=== PATIENT | male | born 1945 | race Caucasian/White ===

== ENCOUNTER 2020-04-15 09:09 | Inpatient (IN) ==
[2020-04-15] MEDS ORDERED: HYDROmorphone 2 MG/1 ML VIAL IV STA (09:36)
[2020-04-15] MEDS ORDERED: SODIUM CHLORIDE 0.9% 1,000 ML IV STA (09:36)
[2020-04-15] MEDS ORDERED: ONDANSETRON 4 MG/2 ML VIAL IV STA ×2 (09:36→12:19)
[2020-04-15 10:02] LABS: Basophils % 0.1 % (0.0-0.8); Eosinophils % 0.1 % (0.00-10.9); Hematocrit 36.8 VOL% (42.0-52.0); Hemoglobin 11.4 GM/DL (14.0-18.0); Immature Granulocytes % 0.7 %; Immature Granulocytes Absolute 0.06 #; Lymphocytes # 0.9 10*3/uL (1.4-4.0); Lymphocytes % 10.5 % (21.2-54.2); Mean Corpuscular Volume 84.8 FL (87-102); Monocytes % 8.7 % (1.7-12.7); Neutrophils % 79.9 % (38.7-73.9); Platelet Count 205 T/CUMM (130-400); Red Blood Count 4.34 MC/CUMM (3.8-5.5); Red Cell Distribution Width 15.5 % (9.3-17.3); White Blood Count 8.6 T/CUMM (4-12)
[2020-04-15 10:34] LABS: Bilirubin,Urine Negative (Negative); Blood, Urine Negative (Negative); Glucose,Urine (UA) Negative (Negative); Ketones,Urine Negative (Negative); Nitrite,Urine Negative (Negative); Protein,Urine Negative; RBC,Urine 2 /HPF (0-4); Urine Appearance CLEAR (Clear); Urine Color Yellow (Yellow); Urine Specific Gravity 1.013 (1.001-1.035); Urine Urobilinogen < 2.0 EU/DL (0.2-1.0); WBC,Urine 6 /HPF (0-6)
[2020-04-15 10:40] LABS: Albumin 3.7 G/DL (3.4-5.0); Bilirubin,Total 0.6 MG/DL (0.2-1.0); Calcium 9.7 MG/DL (8.5-10.1)
[2020-04-15] MEDS ORDERED: ACETAMINOPHEN 325 MG TABLET PO PRN (12:53)
[2020-04-15] MEDS: SODIUM CHLORIDE 0.9% 1,000 ML IV SCH ×2 (13:00→23:23)
[2020-04-15] MEDS: ONDANSETRON 4 MG/2 ML VIAL IV PRN (15:56)
[2020-04-15] MEDS: HYDROmorphone 2 MG/1 ML VIAL IV PRN (15:57)
[2020-04-15] MEDS ORDERED: PROMETHAZINE INJ 12.5 MG in SODIUM CHLORIDE 0.9% 50 ML IV PRN (16:03)
[2020-04-15] MEDS ORDERED: NITROGLYCERIN SL 0.4 MG TABLET SL PRN (16:17)
[2020-04-15] MEDS ORDERED: TERAZOSIN 10 MG CAPSULE PO SCH (21:00)
[2020-04-15] MEDS: carvediloL 25 MG TABLET PO SCH (21:21)
[2020-04-15] MEDS: POTASSIUM CHLORIDE 20 MEQ TABLET PO SCH (21:21)
[2020-04-15] MEDS: DOCUSATE SODIUM 100 MG CAPSULE PO SCH (21:21)
[2020-04-15] MEDS: ATORVASTATIN 10 MG TABLET PO SCH (21:21)
[2020-04-15] MEDS: SERTRALINE 25 MG TABLET PO SCH (21:21)
[2020-04-16] MEDS: ONDANSETRON 4 MG/2 ML VIAL IV PRN ×3 (00:11→17:46)
[2020-04-16 05:39] LABS: Basophils % 0.1 % (0.0-0.8); Hematocrit 35.1 VOL% (42.0-52.0); Hemoglobin 10.7 GM/DL (14.0-18.0); Immature Granulocytes % 0.6 %; Immature Granulocytes Absolute 0.09 #; Lymphocytes # 0.7 10*3/uL (1.4-4.0); Lymphocytes % 4.4 % (21.2-54.2); Mean Corpuscular HGB Conc 30.5 GM/DL (32-36); Mean Corpuscular Volume 87.1 FL (87-102); Monocytes % 12.2 % (1.7-12.7); Neutrophils % 82.7 % (38.7-73.9); Platelet Count 167 T/CUMM (130-400); Red Blood Count 4.03 MC/CUMM (3.8-5.5); Red Cell Distribution Width 15.9 % (9.3-17.3); White Blood Count 14.8 T/CUMM (4-12)
[2020-04-16 05:52] LABS: Calcium 8.9 MG/DL (8.5-10.1); Osmolality,Calculated 285.5 MOS/KG (273-304)
[2020-04-16] MEDS: HYDROmorphone 2 MG/1 ML VIAL IV PRN ×2 (06:11→17:45)
[2020-04-16 06:12] LABS: Band Neutrophils 4 % (0-10); Hypochromasia 1+; Lymphocytes 4 % (20-55); Microcytosis 1+; Platelet Estimate Adequate; Segmented Neutrophils 79 % (50-85); Total Cells Counted 100
[2020-04-16] MEDS ORDERED: SPIRONOLACTONE 25 MG TABLET PO SCH (09:00)
[2020-04-16] MEDS ORDERED: FUROSEMIDE 80 MG TABLET PO SCH (09:00)
[2020-04-16] MEDS ORDERED: oxyCODONE/ACETAMINOPHEN 5-325 MG TABLET PO PRN (09:22)
[2020-04-16] MEDS: carvediloL 25 MG TABLET PO SCH ×2 (09:56→21:25)
[2020-04-16] MEDS: DOCUSATE SODIUM 100 MG CAPSULE PO SCH ×2 (09:56→21:25)
[2020-04-16] MEDS: POTASSIUM CHLORIDE 20 MEQ TABLET PO SCH ×2 (09:57→21:25)
[2020-04-16] MEDS: PANTOPRAZOLE 40 MG TABLET PO SCH (09:57)
[2020-04-16] MEDS: MAGNESIUM CHLORIDE 64 MG TABLET PO SCH (09:57)
[2020-04-16] MEDS: TAMSULOSIN 0.4 MG CAPSULE PO SCH (10:03)
[2020-04-16] MEDS: oxyCODONE/ACETAMINOPHEN 5-325 MG TABLET PO PRN (10:04)
[2020-04-16] MEDS ORDERED: METOCLOPRAMIDE 10 MG/2 ML VIAL IV ONE (14:55)
[2020-04-16] MEDS: SODIUM CHLORIDE 0.9% 1,000 ML IV SCH (15:46)
[2020-04-16] MEDS: cefTRIAXone 1,000 MG in SYRINGE 1 EACH IV SCH (15:46)
[2020-04-16] MEDS: SERTRALINE 25 MG TABLET PO SCH (21:25)
[2020-04-16] MEDS: ATORVASTATIN 10 MG TABLET PO SCH (21:25)
[2020-04-17] MEDS: SODIUM CHLORIDE 0.9% 1,000 ML IV SCH ×3 (02:03→19:19)
[2020-04-17] MEDS: oxyCODONE/ACETAMINOPHEN 5-325 MG TABLET PO PRN ×2 (03:47→20:52)
[2020-04-17 06:51] LABS: Basophils % 0.2 % (0.0-0.8); Hematocrit 31.4 VOL% (42.0-52.0); Hemoglobin 9.6 GM/DL (14.0-18.0); Immature Granulocytes % 1.4 %; Immature Granulocytes Absolute 0.18 #; Lymphocytes # 0.7 10*3/uL (1.4-4.0); Lymphocytes % 5.1 % (21.2-54.2); Mean Corpuscular HGB Conc 30.6 GM/DL (32-36); Mean Platelet Volume 10.4 FL (9.6-12.0); Monocytes % 14.8 % (1.7-12.7); Neutrophils % 78.5 % (38.7-73.9); Platelet Count 150 T/CUMM (130-400); Red Blood Count 3.61 MC/CUMM (3.8-5.5); White Blood Count 12.9 T/CUMM (4-12)
[2020-04-17 07:09] LABS: Calcium 8.3 MG/DL (8.5-10.1)
[2020-04-17] MEDS ORDERED: MAGNESIUM SULF RIDER 4 GM in PREMIX 1 EACH IV PRN (07:32)
[2020-04-17] MEDS ORDERED: MAGNESIUM SULF RIDER 2 GM in PREMIX 1 EACH IV PRN (07:32)
[2020-04-17] MEDS ORDERED: ALUMINUM/MAGNES/SIMETH MAX STR 30 ML UDCUP PO PRN (08:34)
[2020-04-17] MEDS ORDERED: LACTULOSE 20 GM/30 ML UDCUP PO ONE (08:34)
[2020-04-17] MEDS ORDERED: BISACODYL 10 MG SUPP RECTAL ONE (09:00)
[2020-04-17] MEDS: POTASSIUM CHLORIDE 20 MEQ TABLET PO SCH ×2 (09:24→20:44)
[2020-04-17] MEDS: TAMSULOSIN 0.4 MG CAPSULE PO SCH (09:24)
[2020-04-17] MEDS: DOCUSATE SODIUM 100 MG CAPSULE PO SCH ×2 (09:25→20:44)
[2020-04-17] MEDS: carvediloL 25 MG TABLET PO SCH ×2 (09:25→20:44)
[2020-04-17] MEDS: PANTOPRAZOLE 40 MG TABLET PO SCH (09:25)
[2020-04-17] MEDS: MAGNESIUM CHLORIDE 64 MG TABLET PO SCH (09:25)
[2020-04-17] MEDS: cefTRIAXone 1,000 MG in SYRINGE 1 EACH IV SCH (15:05)
[2020-04-17] MEDS: ONDANSETRON 4 MG/2 ML VIAL IV PRN (15:36)
[2020-04-17] MEDS: SERTRALINE 25 MG TABLET PO SCH (20:44)
[2020-04-17] MEDS: ATORVASTATIN 10 MG TABLET PO SCH (20:45)
[2020-04-18] MEDS: SODIUM CHLORIDE 0.9% 1,000 ML IV SCH (03:38)
[2020-04-18] MEDS: POTASSIUM CHLORIDE 20 MEQ TABLET PO SCH ×2 (09:18→21:20)
[2020-04-18] MEDS: MAGNESIUM CHLORIDE 64 MG TABLET PO SCH (09:19)
[2020-04-18] MEDS: carvediloL 25 MG TABLET PO SCH ×2 (09:19→21:20)
[2020-04-18] MEDS: DOCUSATE SODIUM 100 MG CAPSULE PO SCH ×2 (09:19→21:20)
[2020-04-18] MEDS: TAMSULOSIN 0.4 MG CAPSULE PO SCH (09:19)
[2020-04-18] MEDS: PANTOPRAZOLE 40 MG TABLET PO SCH (09:28)
[2020-04-18] MEDS: METOCLOPRAMIDE 10 MG/2 ML VIAL IV SCH ×3 (09:28→23:59)
[2020-04-18] MEDS ORDERED: WARFARIN 5 MG TABLET PO ONE (11:27)
[2020-04-18] MEDS: oxyCODONE/ACETAMINOPHEN 5-325 MG TABLET PO PRN ×2 (13:59→23:32)
[2020-04-18] MEDS: cefTRIAXone 1,000 MG in SYRINGE 1 EACH IV SCH (15:39)
[2020-04-18] MEDS: SERTRALINE 25 MG TABLET PO SCH (21:20)
[2020-04-18] MEDS: ATORVASTATIN 10 MG TABLET PO SCH (21:22)
[2020-04-19 05:59] LABS: Basophils % 0.1 % (0.0-0.8); Eosinophils % 0.2 % (0.00-10.9); Hematocrit 29.3 VOL% (42.0-52.0); Hemoglobin 9.1 GM/DL (14.0-18.0); Immature Granulocytes % 0.8 %; Immature Granulocytes Absolute 0.08 #; Lymphocytes # 0.9 10*3/uL (1.4-4.0); Lymphocytes % 8.9 % (21.2-54.2); Mean Corpuscular HGB Conc 31.1 GM/DL (32-36); Mean Corpuscular Volume 86.2 FL (87-102); Mean Platelet Volume 10.8 FL (9.6-12.0); Monocytes % 17.7 % (1.7-12.7); Neutrophils % 72.3 % (38.7-73.9); Platelet Count 173 T/CUMM (130-400); Red Cell Distribution Width 15.9 % (9.3-17.3)
[2020-04-19 06:09] LABS: INR 1.3; PT Patient Result 13.3 SECS (9.8-11.9)
[2020-04-19 06:17] LABS: Calcium 8.8 MG/DL (8.5-10.1); Osmolality,Calculated 280.1 MOS/KG (273-304)
[2020-04-19 06:25] LABS: Hypochromasia 1+; Lymphocytes 5 % (20-55); Microcytosis 1+; Ovalocytes Slight; Platelet Estimate Adequate; Segmented Neutrophils 80 % (50-85); Total Cells Counted 100
[2020-04-19] MEDS: METOCLOPRAMIDE 10 MG/2 ML VIAL IV SCH ×2 (08:04→17:20)
[2020-04-19] MEDS: POTASSIUM CHLORIDE 20 MEQ TABLET PO SCH ×2 (08:05→20:37)
[2020-04-19] MEDS: TAMSULOSIN 0.4 MG CAPSULE PO SCH (08:05)
[2020-04-19] MEDS: DOCUSATE SODIUM 100 MG CAPSULE PO SCH ×2 (08:05→20:37)
[2020-04-19] MEDS: PANTOPRAZOLE 40 MG TABLET PO SCH (08:05)
[2020-04-19] MEDS: MAGNESIUM CHLORIDE 64 MG TABLET PO SCH (08:05)
[2020-04-19] MEDS: oxyCODONE/ACETAMINOPHEN 5-325 MG TABLET PO PRN ×3 (08:05→20:38)
[2020-04-19] MEDS: carvediloL 25 MG TABLET PO SCH ×2 (08:05→20:37)
[2020-04-19] MEDS: cefTRIAXone 1,000 MG in SYRINGE 1 EACH IV SCH (15:35)
[2020-04-19] MEDS: ATORVASTATIN 10 MG TABLET PO SCH (20:37)
[2020-04-19] MEDS: SERTRALINE 25 MG TABLET PO SCH (20:37)
[2020-04-20] MEDS: METOCLOPRAMIDE 10 MG/2 ML VIAL IV SCH ×3 (00:08→16:32)
[2020-04-20] MEDS: oxyCODONE/ACETAMINOPHEN 5-325 MG TABLET PO PRN ×4 (03:28→22:05)
[2020-04-20] MEDS: MAGNESIUM CHLORIDE 64 MG TABLET PO SCH (09:20)
[2020-04-20] MEDS: PANTOPRAZOLE 40 MG TABLET PO SCH (09:20)
[2020-04-20] MEDS: TAMSULOSIN 0.4 MG CAPSULE PO SCH (09:20)
[2020-04-20] MEDS: POTASSIUM CHLORIDE 20 MEQ TABLET PO SCH ×2 (09:20→20:48)
[2020-04-20] MEDS: DOCUSATE SODIUM 100 MG CAPSULE PO SCH ×2 (09:20→20:48)
[2020-04-20] MEDS: carvediloL 25 MG TABLET PO SCH ×2 (09:20→20:48)
[2020-04-20] MEDS: cefTRIAXone 1,000 MG in SYRINGE 1 EACH IV SCH (16:33)
[2020-04-20] MEDS: ATORVASTATIN 10 MG TABLET PO SCH (20:48)
[2020-04-20] MEDS: SERTRALINE 25 MG TABLET PO SCH (20:48)
[2020-04-20] MEDS: ONDANSETRON 4 MG/2 ML VIAL IV PRN (22:10)
[2020-04-21] MEDS: METOCLOPRAMIDE 10 MG/2 ML VIAL IV SCH ×4 (01:02→23:53)
[2020-04-21 06:35] LABS: Basophils % 0.1 % (0.0-0.8); Eosinophils # 0.1 10*3/uL (0.0-0.87); Eosinophils % 1.1 % (0.00-10.9); Hematocrit 33.4 VOL% (42.0-52.0); Hemoglobin 10.6 GM/DL (14.0-18.0); Immature Granulocytes % 0.9 %; Immature Granulocytes Absolute 0.07 #; Lymphocytes # 0.7 10*3/uL (1.4-4.0); Lymphocytes % 9.3 % (21.2-54.2); Mean Corpuscular HGB Conc 31.7 GM/DL (32-36); Mean Corpuscular Volume 85.9 FL (87-102); Monocytes % 18.8 % (1.7-12.7); Neutrophils % 69.8 % (38.7-73.9); Platelet Count 199 T/CUMM (130-400); Red Blood Count 3.89 MC/CUMM (3.8-5.5); Red Cell Distribution Width 15.9 % (9.3-17.3); White Blood Count 7.4 T/CUMM (4-12)
[2020-04-21 06:57] LABS: Calcium 9.2 MG/DL (8.5-10.1); Osmolality,Calculated 275.2 MOS/KG (273-304)
[2020-04-21 07:04] LABS: Band Neutrophils 5 % (0-10); Eosinophils 1 % (0-10); Lymphocytes 4 % (20-55); Segmented Neutrophils 77 % (50-85); Total Cells Counted 100
[2020-04-21 07:05] LABS: Hypochromasia 1+; Microcytosis 1+; Ovalocytes Slight
[2020-04-21 07:06] LABS: Platelet Estimate Adequate
[2020-04-21] MEDS: PANTOPRAZOLE 40 MG TABLET PO SCH (09:12)
[2020-04-21] MEDS: DOCUSATE SODIUM 100 MG CAPSULE PO SCH ×2 (09:12→20:32)
[2020-04-21] MEDS: MAGNESIUM CHLORIDE 64 MG TABLET PO SCH (09:12)
[2020-04-21] MEDS: POTASSIUM CHLORIDE 20 MEQ TABLET PO SCH ×2 (09:12→20:32)
[2020-04-21] MEDS: TAMSULOSIN 0.4 MG CAPSULE PO SCH (09:12)
[2020-04-21] MEDS: oxyCODONE/ACETAMINOPHEN 5-325 MG TABLET PO PRN ×2 (09:13→18:55)
[2020-04-21] MEDS: carvediloL 25 MG TABLET PO SCH ×2 (09:13→20:32)
[2020-04-21] MEDS: cefTRIAXone 1,000 MG in SYRINGE 1 EACH IV SCH (16:22)
[2020-04-21] MEDS: ONDANSETRON 4 MG/2 ML VIAL IV PRN (20:32)
[2020-04-21] MEDS: ATORVASTATIN 10 MG TABLET PO SCH (20:32)
[2020-04-21] MEDS: SERTRALINE 25 MG TABLET PO SCH (20:32)
[2020-04-22] MEDS: oxyCODONE/ACETAMINOPHEN 5-325 MG TABLET PO PRN ×2 (02:29→15:13)
[2020-04-22] MEDS: METOCLOPRAMIDE 10 MG/2 ML VIAL IV SCH ×2 (08:08→16:36)
[2020-04-22] MEDS: carvediloL 25 MG TABLET PO SCH ×2 (08:50→21:23)
[2020-04-22] MEDS: MAGNESIUM CHLORIDE 64 MG TABLET PO SCH (09:14)
[2020-04-22] MEDS: TAMSULOSIN 0.4 MG CAPSULE PO SCH (09:14)
[2020-04-22] MEDS: DOCUSATE SODIUM 100 MG CAPSULE PO SCH ×2 (09:14→21:23)
[2020-04-22] MEDS: POTASSIUM CHLORIDE 20 MEQ TABLET PO SCH ×2 (09:14→21:21)
[2020-04-22] MEDS: PANTOPRAZOLE 40 MG TABLET PO SCH (09:14)
[2020-04-22] MEDS ORDERED: propofoL 200 MG/20 ML VIAL IV ONE (11:05)
[2020-04-22] MEDS ORDERED: LIDOCAINE 2% 5 ML VIAL ONE (11:05)
[2020-04-22] MEDS ORDERED: SEVOFLURANE 1 UNIT/15 MINUTE INH ONE (11:06)
[2020-04-22] MEDS ORDERED: DEXAMETHASONE 4 MG/1 ML VIAL ONE (11:06)
[2020-04-22] MEDS ORDERED: ONDANSETRON 4 MG/2 ML VIAL ONE (11:06)
[2020-04-22] MEDS ORDERED: ETOMIDATE 40 MG/20 ML VIAL IV ONE (11:06)
[2020-04-22] MEDS ORDERED: fentaNYL 100 MCG/2 ML VIAL ONE (11:06)
[2020-04-22] MEDS ORDERED: PHENYLEPHRINE 1 MG/10 ML SYRINGE IV ONE (11:06)
[2020-04-22] MEDS ORDERED: LACTATED RINGERS 1,000 ML IV ONE (11:06)
[2020-04-22] MEDS: PHENAZOPYRIDINE 95 MG TABLET PO SCH ×2 (12:48→16:37)
[2020-04-22] MEDS: SPIRONOLACTONE 25 MG TABLET PO SCH (15:23)
[2020-04-22] MEDS: cefTRIAXone 1,000 MG in SYRINGE 1 EACH IV SCH (16:36)
[2020-04-22] MEDS ORDERED: cloNIDine 0.1 MG TABLET PO ONE (17:47)
[2020-04-22] MEDS ORDERED: BISACODYL 10 MG SUPP RECTAL PRN (20:25)
[2020-04-22] MEDS: SERTRALINE 25 MG TABLET PO SCH (21:21)
[2020-04-22] MEDS: ATORVASTATIN 10 MG TABLET PO SCH (21:23)
[2020-04-23] MEDS: hydrALAZINE 20 MG/1 ML VIAL IV PRN ×2 (00:35→20:42)
[2020-04-23] MEDS: METOCLOPRAMIDE 10 MG/2 ML VIAL IV SCH ×3 (00:35→16:31)
[2020-04-23 06:37] LABS: Basophils % 0.2 % (0.0-0.8); Eosinophils % 0.3 % (0.00-10.9); Hematocrit 34.1 VOL% (42.0-52.0); Hemoglobin 10.9 GM/DL (14.0-18.0); Immature Granulocytes % 1.9 %; Immature Granulocytes Absolute 0.18 #; Lymphocytes # 1.2 10*3/uL (1.4-4.0); Lymphocytes % 12.4 % (21.2-54.2); Mean Platelet Volume 10.4 FL (9.6-12.0); Monocytes % 14.2 % (1.7-12.7); Platelet Count 254 T/CUMM (130-400); Red Blood Count 4.11 MC/CUMM (3.8-5.5); Red Cell Distribution Width 15.7 % (9.3-17.3); White Blood Count 9.5 T/CUMM (4-12)
[2020-04-23 06:53] LABS: Calcium 9.5 MG/DL (8.5-10.1); Osmolality,Calculated 275.4 MOS/KG (273-304)
[2020-04-23 07:03] LABS: Hypochromasia 1+; Lymphocytes 14 % (20-55); Microcytosis 1+; Ovalocytes Slight; Platelet Estimate Adequate; Segmented Neutrophils 74 % (50-85); Total Cells Counted 100
[2020-04-23] MEDS ORDERED: oxyCODONE/ACETAMINOPHEN 5-325 MG TABLET PO PRN (08:41)
[2020-04-23] MEDS: PHENAZOPYRIDINE 95 MG TABLET PO SCH ×3 (09:19→17:52)
[2020-04-23] MEDS: PANTOPRAZOLE 40 MG TABLET PO SCH (09:20)
[2020-04-23] MEDS: TAMSULOSIN 0.4 MG CAPSULE PO SCH ×2 (09:20→20:40)
[2020-04-23] MEDS: DOCUSATE SODIUM 100 MG CAPSULE PO SCH ×2 (09:20→22:03)
[2020-04-23] MEDS: MAGNESIUM CHLORIDE 64 MG TABLET PO SCH (09:20)
[2020-04-23] MEDS: POTASSIUM CHLORIDE 20 MEQ TABLET PO SCH ×2 (09:20→20:41)
[2020-04-23] MEDS: SPIRONOLACTONE 25 MG TABLET PO SCH (09:20)
[2020-04-23] MEDS: carvediloL 25 MG TABLET PO SCH ×2 (09:20→20:42)
[2020-04-23] MEDS: APIXABAN 2.5 MG TABLET PO SCH ×2 (09:22→20:41)
[2020-04-23] MEDS ORDERED: CLOPIDOGREL 75 MG TABLET PO ONE (09:32)
[2020-04-23] MEDS ORDERED: MAGNESIUM HYDROXIDE SUSP 30 ML UDCUP PO PRN (09:32)
[2020-04-23] MEDS ORDERED: MAGNESIUM HYDROXIDE SUSP 30 ML UDCUP PO ONE (09:32)
[2020-04-23] MEDS: FUROSEMIDE 40 MG TABLET PO SCH (11:05)
[2020-04-23] MEDS: POLYETHYLENE GLYCOL POWDER 17 GM PACK PO SCH (11:05)
[2020-04-23] MEDS: cefTRIAXone 1,000 MG in SYRINGE 1 EACH IV SCH (16:32)
[2020-04-23] MEDS: ATORVASTATIN 10 MG TABLET PO SCH (20:41)
[2020-04-23] MEDS: SERTRALINE 25 MG TABLET PO SCH (20:42)
[2020-04-24] MEDS: METOCLOPRAMIDE 10 MG/2 ML VIAL IV SCH ×3 (00:59→16:24)
[2020-04-24] MEDS ORDERED: CLOPIDOGREL 75 MG TABLET PO SCH (09:00)
[2020-04-24] MEDS: carvediloL 25 MG TABLET PO SCH (10:51)
[2020-04-24] MEDS: MAGNESIUM CHLORIDE 64 MG TABLET PO SCH (10:52)
[2020-04-24] MEDS: APIXABAN 2.5 MG TABLET PO SCH (10:52)
[2020-04-24] MEDS: DOCUSATE SODIUM 100 MG CAPSULE PO SCH (10:52)
[2020-04-24] MEDS: TAMSULOSIN 0.4 MG CAPSULE PO SCH (10:52)
[2020-04-24] MEDS: POTASSIUM CHLORIDE 20 MEQ TABLET PO SCH (10:53)
[2020-04-24] MEDS: SPIRONOLACTONE 25 MG TABLET PO SCH (10:54)
[2020-04-24] MEDS: PANTOPRAZOLE 40 MG TABLET PO SCH (10:54)
[2020-04-24] MEDS: FUROSEMIDE 40 MG TABLET PO SCH (10:54)
[2020-04-24] MEDS: hydrALAZINE 20 MG/1 ML VIAL IV PRN (11:02)
[2020-04-24] MEDS: PHENAZOPYRIDINE 95 MG TABLET PO SCH ×3 (11:05→16:31)
[2020-04-24] MEDS: POLYETHYLENE GLYCOL POWDER 17 GM PACK PO SCH (11:09)
[2020-04-24] MEDS ORDERED: FUROSEMIDE 40 MG TABLET PO SCH (13:41)
[2020-04-24] MEDS ORDERED: FUROSEMIDE 40 MG TABLET PO ONE (13:41)
[2020-04-24 17:45] VITALS: BP 140/77
== END 2020-04-24 18:37 | disposition home or self-care (01) | DRG 660 ==
LOC: N.ED 09:09 → N.EDINP 10:47 → N.TELEN 12:32
PROVIDERS: ADMIT Family Medicine; ATTEND Family Medicine